=== PATIENT | male | born 1945 | race Caucasian/White ===

== ENCOUNTER → 2017-05-06 | Outpatient (CLI) | payer OTHER ==
[2017-05-06 13:22] LABS: BLOOD UREA NITROGEN 20 mg/dl (7-18); BUN/CREATININE RATIO 21.3 (10-20); CREATININE 0.96 mg/dl (0.60-1.40)
== END | disposition home or self-care (01) ==
LOC: C.LAB 11:52
PROVIDERS: ATTEND Urology
DX: N28.1 Cyst of kidney, acquired (principal)

== ENCOUNTER → 2017-05-13 | Outpatient (CLI) | payer OTHER ==
[~2017-05-13] MED LIST: OPTIRAY 320 IV PRN
--- NOTE | 2017-05-13 11:01 | DIAGNOSTIC IMAGING REPORT ---
ABD/PELVIS COMBO CLINICAL HISTORY: 72 years-old Male presenting with KIDNEY CYST, follow-up right renal cyst seen on outside hospital ultrasound, right flank pain described as dull, no history of kidney stones. TECHNIQUE: Multidetector CT of the abdomen and pelvis was performed before and after the administration of intravenous contrast. IV contrast: 94 mL of Optiray 320. A dose lowering technique was used consistent with the principles of ALARA (as low as reasonably achievable). COMPARISON: None. CT DOSE (mGy.cm): The estimated cumulative dose is 2495.73 mGycm. FINDINGS: Final [employer] topogram: Unremarkable. Lung bases: Lung bases clear. Top normal heart size. Mitral annular, coronary artery, and aortic valve calcification. No pericardial or pleural effusion. Liver: Normal morphology. No liver lesion. Patent hepatic vasculature. Biliary: No intrahepatic or extrahepatic biliary ductal dilatation. Normal gallbladder. Pancreas: Moderate parenchymal atrophy. Spleen: Normal. Adrenal glands: Normal. Kidneys and ureters: Bilateral well-defined hypodense lesions in the kidneys without demonstrable enhancement consistent with simple cysts. No suspicious renal mass. Few additional small hypodensities too small to characterize. No hydronephrosis. Nonobstructing renal calculus at the right lower pole measuring 3 mm (series 3 image 192). Ureters normal. Gastrointestinal tract: Pancolonic diverticulosis. Peritoneal cavity: No free fluid or intraperitoneal gas. Bladder: Diverticulum noted near the dome. No significant wall thickening. Pelvic organs: Prostate enlargement likely secondary to benign prostatic hyperplasia. Vasculature: Atherosclerosis of the abdominal aorta. Mild contour irregularity in the infrarenal portion (series 7 image 237), likely mild ectasia or focal pseudoaneurysm. Lymph nodes: No enlarged lymph nodes in the abdomen or pelvis. Abdominal wall: Fat-containing left inguinal hernia. Musculoskeletal: Degenerative changes of the spine. IMPRESSION: 1. Bilateral simple renal cysts. No suspicious renal mass. 2. Nonobstructing 3 mm right renal calculus. 3. Diverticulosis. Electronically signed by: Alvaro Saha M.D. 05/13/2017 11:00 AM Dictated Date/Time: 05/13/2017 10:52 AM
== END | disposition home or self-care (01) ==
LOC: C.CTS 10:18
PROVIDERS: ATTEND Urology
DX: N28.1 Cyst of kidney, acquired (principal); N20.0 Calculus of kidney; K57.90 Diverticulosis of intestine, part unspecified, without perforation or abscess without bleeding